=== PATIENT | male | born 1995 | race Caucasian/White ===

== ENCOUNTER 2018-06-07 23:06 | Emergency (ER) | payer OTHER ==
[~2018-06-07] VITALS: Ht 172.7 cm; Wt 99.8 kg
[2018-06-08] MEDS ORDERED: GILPHEX TR TAB1 EACH PO (04:36)
[2018-06-08] MEDS ORDERED: CEFUROXIME500 MG PO (04:36)
== END 2018-06-08 04:48 | disposition home or self-care (01) ==
LOC: ER 23:06
DX: J06.9 Acute upper respiratory infection, unspecified (principal); R50.9 Fever, unspecified